=== PATIENT | female | born 1950 ===

== ENCOUNTER → 2023-04-24 | Outpatient (CLI) | payer MEDICARE, OTHER ==
[~2023-04-24] VITALS: Ht 162.6 cm; Wt 47.0 kg
[~2023-04-24] MED LIST: ATOR10TA PO; CITA-144 PO
[2023-04-24 09:12] VITALS: BP 129/75; PULSE 64; RESP 18; TEMP 97.9; O2SAT 94
== END | disposition home or self-care (01) ==
LOC: SRCNTR 08:49
PROVIDERS: ATTEND Internal Medicine
DX: J45.909 Unspecified asthma, uncomplicated (principal); R91.1 Solitary pulmonary nodule; Z85.3 Personal history of malignant neoplasm of breast; Z90.10 Acquired absence of unspecified breast and nipple
CPT/HCPCS: G0463

== ENCOUNTER → 2023-05-10 | Outpatient (CLI) | payer MEDICARE, OTHER ==
[~2023-05-10] VITALS: Ht 162.6 cm; Wt 47.0 kg
[~2023-05-10] MED LIST changes: +ALBU18HF12 IH
[2023-05-10 09:28] VITALS: BP 133/76; PULSE 66; RESP 16; TEMP 98; O2SAT 99
== END | disposition home or self-care (01) ==
LOC: SRCNTR 09:27
PROVIDERS: ATTEND Internal Medicine
DX: J45.909 Unspecified asthma, uncomplicated (principal); R91.1 Solitary pulmonary nodule; Z85.3 Personal history of malignant neoplasm of breast
CPT/HCPCS: G0463; Z7500

== ENCOUNTER → 2023-08-31 | Outpatient (CLI) | payer MEDICARE, OTHER ==
[~2023-08-31] VITALS: Ht 162.6 cm; Wt 47.0 kg
[2023-08-31 09:20] VITALS: BP 123/76; PULSE 70; RESP 18; TEMP 97.5; O2SAT 98
== END | disposition home or self-care (01) ==
LOC: SRCNTR 09:01
PROVIDERS: ATTEND Internal Medicine
DX: J45.998 Other asthma (principal); R91.8 Other nonspecific abnormal finding of lung field; Z90.10 Acquired absence of unspecified breast and nipple; Z79.899 Other long term (current) drug therapy
CPT/HCPCS: G0463; Z7500